=== PATIENT | female | born 1965 | race Caucasian/White ===

== ENCOUNTER 2020-08-19 22:39 | Emergency (ER) | payer OTHER ==
[2020-08-19] MEDS ORDERED: MOTRIN600 MG PO (22:59)
[2020-08-19] MEDS ORDERED: PREDNISONE 20MG20 MG PO (23:39)
== END 2020-08-19 23:53 | disposition home or self-care (01) ==
LOC: FER 22:39
DX: L50.0 Allergic urticaria (principal); I10 Essential (primary) hypertension; Z79.899 Other long term (current) drug therapy
CPT/HCPCS: 93005; J1200; J2930

== ENCOUNTER 2021-11-11 00:35 | Emergency (ER) | payer OTHER ==
[~2021-11-11 00:35] MED LIST: MOTRIN600 MG PO; PREDNISONE 20MG20 MG PO
[2021-11-11] MEDS ORDERED: MEDROL 4MG DOSEP4 MG PO (01:58)
== END 2021-11-11 02:19 | disposition home or self-care (01) ==
LOC: FER 00:35
DX: T78.1XXA Other adverse food reactions, not elsewhere classified, initial encounter (principal); I10 Essential (primary) hypertension; Z28.310 Unvaccinated for COVID-19
CPT/HCPCS: 96372; J0171; J1200; J2405; J2930